=== PATIENT | female | born 1980 | race Caucasian/White ===

== ENCOUNTER → 2020-10-07 | Day surgery (SDC) | payer BC ==
[~2020-10-07] MED LIST: FENTANYL CITR 100 MCG/2 ML ONE; HYDROCODONE/APAP 5/325 MG TAB ONE; KETOROLAC 30 MG/ML INJ ONE; LIDOCAINE 1% MPF 5 ML VIAL ONE; MIDAZOLAM HCL 2 MG/2 ML INJ ONE; NA CHLORIDE 0.9% 2,000 ML ONE; ONDANSETRON 4 MG/2 ML VIAL ONE; Ringers Lactate 1,000 ML IV ONE; dexAMETHasone 10 MG/ML VIAL ONE; propofoL 200 MG/20 ML VIAL IV ONE
[2020-10-07] MEDS: CEFAZOLIN/SWI 1gm 1 GM/10 ML SYR ONE ×4 (12:43→14:16)
[2020-10-07 16:32] VITALS: O2SAT 100
[2020-10-07 16:35] VITALS: BP 111/70
--- NOTE | 2020-10-07 19:34 | OP ---
Date of Procedure: 10/07/2020 Surgeon: Candy Jefferson MD Preoperative Diagnoses: Dysmenorrhea, heavy periods, iron deficiency anemia. Postoperative Diagnoses: Dysmenorrhea, heavy periods, iron deficiency anemia. Procedures Performed: Hysteroscopy, endometrial ablation with NovaSure. Anesthesia: General with LMA. Specimens: No specimens. Complications: No complications. Drains: No drains. Condition: Stable. Findings: Uterus anteflexed, 9.5 cm sounding length, 5.5 cm cavity length. Cervical length was rabia mated at 4 cm with a 4.7 cm, power 142 shi and time of ablation 1 minute 48 seconds. Two devices h ad to be used, the first device shut off at 25 seconds with vacuum seal leak detected. Then, after r eadjustment and repositioning, another 5 seconds shut off again. Then, this device was removed. The second device used and there was no problems using and completing the ablation. Indications: The patient is a 39-year-old female with heavy bleeding, dysmenorrhea. Previously had seen Dr. Dang and had IUDs placed. Her bleeding has gotten progressively worse and iron deficiency a nemia at this time. She was using NSAIDs for her dysmenorrhea, IUD decline. Endometrial sampling pe rformed and no EIN or EAC (atypia or malignancy). She had history of Essure in the past. Hemoglobin currently 13 g. Discussed about all the different options and she wanted to proceed with an ablatio n, so she was consented and brought to the OR for this. She had history of COVID in the past and her COVID test came back positive, which was not surprising; however, the patient is completely asymptom atic for more than 2 weeks. Procedure In Detail: She was brought to the OR. After re-consented, taken back to the OR, placed in supine fashion on the operating table. 2 g of Ancef were given. Toradol was given 30 mg. SCDs wer e placed. Time-out was done. The patient was placed in dorsal lithotomy position. Vulva, vagina, a nd perineum were prepped and draped in a sterile fashion. Speculum placed to expose the cervix. Ant erior lip grasped with single Allis clamp on the anterior lip. Then, diagnostic SlimLine hysteroscop e, 30 degree lens, normal saline used for direct cavity evaluation. The sounding length was 9.5 cm, cervical length 4 cm. Calculated cavity length of 4.5 cm was estimated and then entered in the mach ine. Then, the NovaSure device was opened up and deployed without any problems. The cervix was dila hemant to 16-Nauruan. Then, the device was deployed without any problems. Once it was inside and deploy ed, the width was 4.7 cm. I made sure that the cervical closure was placed appropriately and the cav ity assessment test was done. Once it passed, I started the ablation cycle enabling the machine. Th en at 25 seconds, there was shut off due to detected vacuum leak alert. The seal at the cervix was c hecked. There was no evidence of any leakage here, so I went on to reactivate the device and then 5 seconds, it had the same alarm. So, the device was deployed in the usual fashion. Then, diagnostic hysteroscopy was performed. There was no evidence of any perforation. Excellent visualization of al l uterine daniels, tubal ostia as well. So, the scope was removed. Then, a new device was opened up. The Allis clamp was switched to a single-tooth tenaculum. Then, the device was deployed without any problems after reassessing the length. The cavity width was again 4.7 cm. Then, the readings were entered into the generator and ablation cycle started. The occluder was placed at the cervix and an Allis clamp was used at the cervix for further tightening and prevention of any leak. The cycle was completed without any problems or shut off 142 shi for 1 minute 48 seconds. The device was un-depl oyed in the usual fashion. Then, hysteroscopy was performed. There was excellent ablation effect an d all was slight amount of endometrium at the fundus on the left side appeared to still be slightly l ess cauterized. More than 95% of the endometrial surface appeared to be well ablated. The cavity wa s rinsed out. The scope was removed. Instrument, needle, and sponge counts were done after everythi ng was removed and they were correct. EBL was minimal. The patient tolerated the procedure well. S he was given Toradol at the beginning of the case. She was taken to the PACU in stable condition. S he is a COVID positive patient, so she was kept in a negative pressure room, all precautions taken un iversally. Then, she was given Diflucan as she was complaining of vulvar irritation, likely prior hi story of vulvovaginal candidiasis, so Diflucan now in 72 hours if there is 1 available we will it now and then let her take her 2 tablets 3 days apart. She has a 4-week appointment follow up at the off ice. All instructions given. [place] given. Diflucan prescription given. She will be discharged sherice HAMILTON/JEFERSON Voice ID: [id number] Report ID: [id number]
== END ==
LOC: OR 11:27
PROVIDERS: ATTEND Obstetrics & Gynecology
PROC: 0U5B8ZZ Destruction of Endometrium, Via Natural or Artificial Opening Endoscopic (ICD-10-PCS; principal; 2020-10-07 12:30)
DX: N94.6 Dysmenorrhea, unspecified (principal); N92.1 Excessive and frequent menstruation with irregular cycle; D50.0 Iron deficiency anemia secondary to blood loss (chronic); D50.8 Other iron deficiency anemias; U07.1 COVID-19
CPT/HCPCS: 81025; 58563; U0003; J2704; J2250; J3010; J1100; J0690 ×2; J7120; J7030; J2405

== ENCOUNTER 2024-06-14 11:55 | Emergency (ER) | payer BC ==
--- OUTSIDE RECORDS SUMMARY | 2024-06-14 11:58 | XMS REPORT | Continuity of Care Document ---
Author Name Unknown Address [address] [place] [address] [facility] thconnect Address [address] [place] [address] Care Team Providers Care End Lathe Operator Name Role Phone Pcp, Patient Does Not Have A Primary Care Physic wayne [email or web address] Attending Clinician DARA Calloway Attending Clinician Unavailable Dara Moreno PA-C Attending Clinician [phone] Doctor Unassigned, [place] Attending Clinician U LAYA Leahy Attending Clinician Unavail able [email or web address]_S Admitting Clinician López hernandez Physician, No Primary or Family Admitting Clinic wayne Unavailable Payers Payer Name Policy Type Policy Number Effective Date Expirati on Date Source [facility] [id number] 2022 00:00:00 Problems Condition Name Condition Details Condition Category Status Onset Date Resolution Date Last Treatment Date Treating Clinician Comments Source No known active problems No known active problems Disease [facility] Allergies, Adverse Reactions, Alerts Allergy Name Allergy Type Status Severity Reaction(s) Onset Date Inactive Date Treating Clinician Comments Source NO KNOWN ALLERGIE S Drug Class Active [facility] Social History Social Habit Start Date Stop Date Quantity Comments Source History of tobacco use Passive smoker [facility] Exposure to SARS-CoV-2 (event) 2022-07-14 00:00:00 2022-07-24 14:50:00 Not sure [facility] Tobacco use and exposure 2022-07-24 00:00:00 2022-07-24 00:00:00 Smokeless tobacco non-user [facility] Alcohol intake 2022-07-24 00:00:00 2022-07-24 00:00:00 Current drinker of alcohol (finding) [facility] Sex Assigned At 1980 00:00:00 1980 00:00:00 [facility] Smoking Status Start Date Stop Date Source Tobacco smoking consumption unknown [facility] Never smoked tobacco [facility] Medications Ordered Medication Name Filled Medication Name Start Date Stop Date Current Medication? Ordering Clinician Indication Dosage Frequency Signature (SIG) Comments Components Source No known medications 07-26 14:06: 13 No No known medication s [facility] ARMOUR THYROID 60 mg tablet 07-21 00:00: 00 Yes [facility] SYNTHROID 25 mcg tablet 07-20 00:00: 00 Yes [facility] dicyclomine 10 mg capsule 2021-07 00:00: 00 Yes [facility] dextroamphe tamine-amph etamine 20 mg tablet 2021-07- 00:00: 00 Yes [facility] Vital Signs Vital Name Observation Time Observation Value Comments S mynor Systolic blood pressure 2022-07-24 21:19:00 124 mm[Hg] [facility] Diastolic blood pressure 2022-07-24 21:19:00 84 mm[Hg] [facility] Heart rate 2022-07-24 21:19:00 77 /min [facility] Body temperature 2022-07-24 21:19:00 36.78 [place] [facility] Respiratory rate 2022-07-24 21:19:00 17 /min [facility] Body height 2022-07-24 21:19:00 167.6 cm [facility] Body weight 2022-07-24 21:19:00 60.601 kg [facility] BMI 2022-07-24 21:19:00 21.56 kg/m2 [facility] Procedures Procedure Date / Time Performed Performing Clinicia n Source ASSIGNMENT OF BENEFITS 2022-07-24 20:50:20 Docto r Unassigned, [place] [facility] Encounters Start Date/Time End Date/Time Encounter Type Admission Type Attending Clinicians Care Facility Care Department Encounter ID Source 2023-05-13 00:00:00 2023-05-13 00:00:00 Outpatient [email or web address] [email or web address] PRIV PRIV [id number] [facility] 2022-07-25 15:45:00 2022-07-25 15:45:00 Outpatient DARA FRAGA [facility] [id number] [facility] 2022-07-24 16:30:00 2022-07-24 16:49:23 Outpatient R DARA MORENO [facility] [id number] [facility] 2022-07-24 16:30:00 2022-07-24 16:49:23 Office Visit Dara Moreno [facility] ..[id number] [facility] 2022-07-24 00:00:00 2022-07-24 00:00:00 Orders Only Doctor Unassigned, [place] [facility] .[id number] [facility] 2022-07-20 00:00:00 2022-07-20 00:00:00 Telephone Dara Moreno [facility] ..[id number] [facility] 2019-07-17 12:00:2019-07-17 12:00:00 Outpatient [facility] [id number] [facility]
--- NOTE | 2024-06-14 13:46 | RAD REPORT ---
EXAM: Chest Single View HISTORY: SWELLING COMPARISON: None. FINDINGS: LUNGS/PLEURA: The lungs are clear. No pleural effusions or pneumothorax. No pulmonary edema. MEDIASTINUM: The mediastinal silhouette is within normal limits. CARDIAC: The cardiac silhouette is within normal limits. UPPER ABDOMEN: No significant abnormality. BONES: No acute fracture. LINES/TUBES/OTHER: N/A IMPRESSION: No evidence of acute cardiopulmonary disease.
[2024-06-14 13:58] LABS: Absolute Basophils 0.1 K/uL (0-0.5); Absolute Eosinophils 0.3 K/uL (0-0.5); Absolute Lymphocytes (CBC) 0.7 K/uL (0.7-4.9); Absolute Monocytes 0.3 K/uL (0.1-1.3); Absolute Neutrophil 4.1 K/uL (1.8-8.0); Eosinophils % 5.3 % (0-4.4); Hematocrit 40.8 % (36.0-45.0); Hemoglobin 13.7 g/dL (12.0-15.0); Lymphocytes % 12.8 % (15.3-44.8); MCH 31.5 pg (27.0-35.0); MCHC 33.7 g/dL (32.0-36.0); MCV 93.5 fL (80-100); MPV 9.8 fL (7.6-11.3); Monocytes % 4.8 % (3.3-12.3); Neutrophils % 76.1 % (41.7-73.7); Platelets 226 thou/uL (152-406); RBC Red Blood Cell Count 4.37 M/uL (3.86-4.86); Red Cell Distribution Width 12.5 % (12.1-15.2)
[2024-06-14 14:23] LABS: ALT/SGPT 21 U/L (13-56); AST/SGOT 22 U/L (15-37); Albumin 3.4 g/dL (3.4-5.0); Alkaline Phosphatase 83 U/L (45-117); Anion Gap 7.3 mEq/L (5.0-15.0); BUN Blood Urea Nitrogen 8 mg/dL (7-18); Bicarbonate 28 mEq/L (21-32); Bilirubin Direct < 0.2 mg/dL (0-0.2); Bilirubin Indirect, Calculated 0.1 mg/dL (0.2-0.8); Bilirubin Total 0.3 mg/dL (0.2-1.0); Globulin 3.4 g/dL (2.3-3.5); Glomerular Filtration Rate 96 ml/min (=/>90); Glucose Level 71 mg/dL (74-106); Magnesium 1.7 mg/dL (1.6-2.4); NT PRO-BNP 165 pg/mL (<125); Potassium 3.3 mEq/L (3.5-5.1); Protein, Total 6.8 g/dL (6.4-8.2); Sodium Level 142 mEq/L (136-145)
[2024-06-14] MEDS ORDERED: FUROSEMIDE 20 MG/ 2ML VIAL ONE (15:41)
[2024-06-14] MEDS ORDERED: POTASSIUM CL SA 10 MEQ TAB PO ONE (15:42)
[2024-06-14 16:09] LABS: Specific Gravity 1.025 (1.005-1.030)
[2024-06-14 16:12] LABS: Calcium Oxalate Crystals- Ur Moderate /HPF (None Seen); Specific Gravity 1.025 (1.005-1.030); Sqamous Epithelial <5 /HPF (None Seen); Urine Bacteria <20 /HPF (<20); Urine Bilirubin NEGATIVE (Negative); Urine Blood Negative (Negative); Urine Clarity Extremely Turbid (Clear); Urine Color Yellow (Yellow); Urine Culture Reflex Order REFLEXED; Urine Glucose NEGATIVE (Negative); Urine Ketones TRACE (Negative); Urine Microscopic Reflex YN ORDER UMIC; Urine Mucus 4+ /HPF (None Seen); Urine Nitrite NEGATIVE (Negative); Urine Protein 1+ (Negative); Urine RBC None Seen /HPF (None Seen); Urine Urobilinogen Normal (Normal); Urine pH 5.5 (5.0-7.0)
--- NOTE | 2024-06-14 16:16 | ER ---
Nurse's Notes [facility] Name: Clair Metz Age: 43 yrs Sex: Female : 1980 Arrival Date: 06/14/2024 Time: 11:55 Bed 15 Private MD: Diagnosis: Edema, unspecified Presentation: 06/14 12:21 Chief complaint: Patient states: bilateral hand, feet pain and swelling that began ss . Coronavirus screen: Client denies travel out of the [place] in the last 14 days. Ebola Screen: Patient denies exposure to infectious person. Patient denies travel to an Ebola-affected area in the 21 days before illness onset. Initial Sepsis Screen: Does the patient meet any 2 criteria? No. Patient's initial sepsis screen is negative. Does the patient have a suspected source of infection? No. Patient's initial sepsis screen is negative. Risk Assessment: Do you want to hurt yourself or someone else? Patient reports no desire to harm self or others. Onset of symptoms was June 12, 2024. 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 - Infectious Disease History:: Denies. - Social history:: Smoking status: Patient reports the use of cigarette tobacco products, denies chronic smoking, but will smoke occasionally. Screenin:28 [facility] ED Fall Risk Assessment (Adult) History of falling in the last 3 months, tm6 including since admission No falls in past 3 months (0 pts) Confusion or Disorientation No (0 pts) Intoxicated or Sedated No (0 pts) Impaired Gait No (0 pts) Mobility Assist Device Used No (0 pt) Altered Elimination No (0 pt) Score/Fall Risk Level 0 - 2 = Low Risk Oriented to surroundings, Maintained a safe environment, Educated pt \T\ family on fall prevention, incl call for assistance when getting out of bed. Abuse screen: Denies threats or abuse. Denies injuries from another. Nutritional screening: No deficits noted. Tuberculosis screening: No symptoms or risk factors identified. Assessment: 14:28 General: Appears in no apparent distress. Behavior is calm, cooperative. Pain: tm6 Complains of pain in right hand, left hand, right foot and left foot Pain currently is 1 out of 10 on a pain scale. Quality of pain is described as aching, numb, Pain began 1 day ago. Neuro: Level of Consciousness is awake, alert, obeys commands, Oriented to person, place, time, situation. Cardiovascular: Patient's skin is warm and dry. Respiratory: Airway is patent Respiratory effort is even, unlabored, Respiratory pattern is regular, symmetrical. GI: No signs and/or symptoms were reported involving the gastrointestinal system. Abdomen is flat, non-distended. : No signs and/or symptoms were reported regarding the genitourinary system. EENT: No signs and/or symptoms were reported regarding the EENT system. Derm: No signs and/or symptoms reported regarding the dermatologic system. Musculoskeletal: Swelling present in right hand, left hand, right foot and left foot Reports pain in right hand, left hand, right foot and left foot since yesterday. Pain is 1 out of 10 on a pain scale. 16:32 Reassessment: Patient and/or family updated on plan of care and expected duration. Pain tm6 level reassessed. Patient is alert, oriented x 3, equal unlabored respirations, skin warm/dry/pink. Vital Signs: 12:18 Temp 98.2(O); Pulse Ox 100% on R/A; tm6 12:20 BP 123 / 65; Pulse 76; Pulse Ox 100% on R/A; Weight 61.23 kg; Height 5 ft. 6 in. ; Pain ss 0/10; 14:30 BP 118 / 63; Pulse 71; Pulse Ox 99% on R/A; MAP 81 mmHg; Pain 1/10; tm6 16:32 BP 119 / 58; Pulse 80; Resp 17; Temp 98.2; Pulse Ox 100% ; MAP 76 mmHg; Pain 0/10; tm6 12:20 Body Mass Index 21.79 (61.23 kg, 167.64 cm) ss 12:20 Pain Scale: Adult ss 14:30 Pain Scale: Adult tm6 16:32 Pain Scale: Adult tm6 ED Course: 11:57 Patient arrived in ED. mr 11:58 Denisa Mckeon FNP-C is [facility]. kb 11:58 Santy Lopez MD is Attending Physician. kb 12:24 Triage completed. ss 12:24 Arm band placed on left wrist. ss 13:44 XRAY Chest (1 view) In Process Unspecified. EDMS 13:46 Basic Metabolic Panel Sent. nh2 13:46 CBC with Diff Sent. nh2 13:46 LFT's Sent. nh2 13:46 Magnesium Sent. nh2 13:46 NT PRO-BNP Sent. nh2 13:46 Troponin HS Sent. nh2 13:46 Inserted saline lock: 20 gauge in right antecubital area, using aseptic technique. nh2 Blood collected. Flushed with 10 mL NS. 14:18 Marlee Pope, NATALI is Primary Nurse. tm6 14:28 Patient has correct armband on for positive identification. Bed in low position. Call tm6 light in reach. Side rails up X 1. Provided Education on: use of call catherine. Client placed on continuous cardiac and pulse oximetry monitoring. NIBP monitoring applied. quality assurance monitor chassis on. Pulse ox on. NIBP on. Door closed. Noise minimized. Warm blanket given. Pillow given. 16:10 Urinalysis w/ reflexes Sent. tm6 16:33 No provider procedures requiring assistance completed. IV discontinued, intact, tm6 bleeding controlled, No redness/swelling at site. Pressure dressing applied. Administered Medications: 16:10 Drug: Furosemide IVP 20 mg IVP once; give over 2 minutes Route: IVP; Site: right tm6 antecubital; 16:33 Follow up: Response: No adverse reaction tm6 16:10 Drug: Potassium Chloride PO 20 mEq PO once Route: PO; tm6 16:33 Follow up: Response: No adverse reaction tm6 Medication: 14:28 VIS not applicable for this client. tm6 Outcome: 16:16 Discharge ordered by . kb 16:33 Discharged to home ambulatory, with family, tm6 16:33 Condition: stable 16:33 Discharge instructions given to patient, family, Instructed on discharge instructions, follow up and referral plans. medication usage, Demonstrated understanding of instructions, follow-up care, medications, Prescriptions given X 1, 16:33 Patient left the ED. tm6 Signatures: Dispatcher [employer] EDMS Denisa Mckeon FNP-C SCREW MACHINE HAND-Deanna Rushing, Reg Reg Shonda Mehta, RN RN ss Marlee Pope RN RN tm [place] , [place] [id number] Corrections: (The following items were deleted from the chart) 12:24 Home Meds: None; ss 12: 12:24 PMHx: None; ss
--- NOTE | 2024-06-14 16:16 | EDPHYS ---
Physician Documentation [facility] Name: Clair Metz Age: 43 yrs Sex: Female : 1980 Arrival Date: 06/14/2024 Time: 11:55 Bed 15 Private MD: ED Physician Santy Lopez HPI: 06/14 16:19 This 43 yrs old Female presents to ER via Ambulatory with complaints of Hand Swelling, kb Swelling of Lower Extremity. 16:19 Pt is a 43 year old female with no medical history who presents for swelling to all kb extremities that started 3 days ago. States this has never happened before. Denies shortness of breath. States her shoes and rings started feeling tighter and tighter. . 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 - Infectious Disease History:: Denies. - Social history:: Smoking status: Patient reports the use of cigarette tobacco products, denies chronic smoking, but will smoke occasionally. ROS: 14:48 Constitutional: As per HPI kb Exam: 14:47 Constitutional: This is a well developed, well nourished patient who is awake, alert, kb and in no acute distress. Head/Face: Normocephalic, atraumatic. ENT: Moist Mucous membranes Cardiovascular: Regular rate Respiratory: Respirations even and unlabored. No increased work of breathing. Talking in full sentences Abdomen/GI: Soft, non-tender. No distention Skin: Warm, dry with normal turgor. Normal color. MS/ Extremity: Pulses equal, no cyanosis. Neurovascular intact. Full, normal range of motion. Neuro: Awake and alert, GCS 15, oriented to person, place, time, and situation. 14:47 ECG was reviewed by the Attending Physician. Vital Signs: 12:18 Temp 98.2(O); Pulse Ox 100% on R/A; tm6 12:20 BP 123 / 65; Pulse 76; Pulse Ox 100% on R/A; Weight 61.23 kg; Height 5 ft. 6 in. ; Pain ss 0/10; 14:30 BP 118 / 63; Pulse 71; Pulse Ox 99% on R/A; MAP 81 mmHg; Pain 1/10; tm6 16:32 BP 119 / 58; Pulse 80; Resp 17; Temp 98.2; Pulse Ox 100% ; MAP 76 mmHg; Pain 0/10; tm6 12:20 Body Mass Index 21.79 (61.23 kg, 167.64 cm) ss 12:20 Pain Scale: Adult ss 14:30 Pain Scale: Adult tm6 16:32 Pain Scale: Adult tm6 MDM: 11:58 Medical Screening Exam initiated kb 14:48 Differential diagnosis: edema, acute renal failure, CHF. Data reviewed: vital signs, kb nurses notes. Historians other than the Patient: Spouse/Significant Other: spouse. 15:39 Counseling: I had a detailed discussion with the patient and/or guardian regarding the kb historical points, exam findings, and any diagnostic results supporting the discharge/admit diagnosis, lab results, radiology results, the need for outpatient follow up, a family practitioner, to return to the emergency department if symptoms worsen or persist or if there are any questions or concerns that arise at home. 06/14 12:25 Order name: Basic Metabolic Panel; Complete Time: 14:24 kb 06/14 12:25 Order name: CBC with Diff; Complete Time: 14:21 kb 06/14 12:25 Order name: LFT's; Complete Time: 14:24 kb 06/14 12:25 Order name: Magnesium; Complete Time: 14:24 kb 06/14 12:25 Order name: NT PRO-BNP; Complete Time: 14:24 kb 06/14 12:25 Order name: Troponin HS; Complete Time: 14:24 kb 06/14 12:25 Order name: TSH; Complete Time: 14:24 kb 06/14 15:34 Order name: Test, Urine; Complete Time: 16:15 ss 06/14 15:34 Order name: Urinalysis w/ reflexes; Complete Time: 16:15 ss 06/14 16:15 Order name: Urine Culture EDMS 06/14 12:25 Order name: XRAY Chest (1 view); Complete Time: 13:52 kb 06/14 12:25 Order name: Cardiac monitoring; Complete Time: 14:52 kb 06/14 12:25 Order name: EKG - Nurse/Tech; Complete Time: 14:52 kb 06/14 12:25 Order name: IV Saline Lock; Complete Time: 13:46 kb 06/14 12:25 Order name: Labs collected and sent; Complete Time: 13:46 kb 06/14 12:25 Order name: O2 Per Protocol; Complete Time: 14:23 kb 06/14 12:25 Order name: O2 Sat Monitoring; Complete Time: 14:23 kb EC:47 Rate is 74 beats/min. Rhythm is regular. QRS [place] is Normal. DE interval is normal at kb 128 msec. QRS interval is normal at 94 msec. QT interval is normal at 430 msec. Administered Medications: 16:10 Drug: Furosemide IVP 20 mg IVP once; give over 2 minutes Route: IVP; Site: right tm6 antecubital; 16:33 Follow up: Response: No adverse reaction tm6 16:10 Drug: Potassium Chloride PO 20 mEq PO once Route: PO; tm6 16:33 Follow up: Response: No adverse reaction tm6 Disposition Summary: 06/14/24 16:16 Discharge Ordered Notes: Location: Home kb Condition: Stable kb Diagnosis - Edema, unspecified kb Followup: kb - With: Emergency Department - When: As needed - Reason: Worsening of condition Followup: kb - With: Private Physician - When: 2 - 3 days - Reason: Recheck today's complaints, Continuance of care, Re-evaluation by your physician Discharge Instructions: - Discharge Summary Sheet kb - Nephrotic Syndrome kb - Peripheral Edema kb Forms: - Medication Reconciliation Form kb - Antibiotic Education kb - Prescription Opioid Use kb - Patient Portal Instructions kb - Leadership Thank You Letter kb Prescriptions: - Hydrochlorothiazide 12.5 mg Oral Tablet - take 1 tablet ORAL route once daily; 30 tablet; Refills: 0, Product Selection kb Permitted Signatures: Dispatcher [employer] EDMS Denisa Mckeon FNP-C CLEO-Shonda Temple, RN RN Marlee Modi RN RN tm6 Corrections: (The following items were deleted from the chart) 12:24 12:24 Home Meds: None; ss ss 12:24 12:24 PMHx: None; ss ss 12:26 12:26 BASIC METABOLIC PANEL+C.LAB.BRZ ordered. EDMS EDMS 12: 12:26 CBC+H.LAB.BRZ ordered. EDMS EDMS 12: 12:26 HEPATIC FUNCTION+C.LAB.BRZ ordered. EDMS EDMS 12: 12:26 MAGNESIUM+C.LAB.BRZ ordered. EDMS EDMS : 12:26 PROBNP+C.LAB.BRZ ordered. EDMS EDMS : 12:26 Troponin High Sensitivity+C.LAB.BRZ ordered. EDMS EDMS : 12:26 THYROID STIMULAT HORMONE+C.LAB.BRZ ordered. EDMS EDMS : 12:26 Chest Single View+RAD.RAD.BRZ ordered. EDMS EDMS 15:35 15:35 Test, Urine+UC.LAB.BRZ ordered. EDMS EDMS 15:35 15:35 Urinalysis+U.LAB.BRZ ordered. EDMS EDMS
[2024-06-14 17:07] VITALS: TEMP 98.2
[2024-06-14 17:15] VITALS: BP 119/58; O2SAT 100
--- NOTE | 2024-06-15 14:12 | EKG ---
Test Date: 2024-06-14 Test Time: 14:32:03 [employer] Sales Agent: AM MEASUREMENT RESULTS: Intervals: Rate: 74 MS: 128 QRSD: 94 QT: 388 QTc: 430 Foster: P: 65 MS: 128 QRS: -10 T: 53 INTERPRETIVE STATEMENTS: Normal sinus rhythm Nonspecific T wave abnormality Abnormal ECG No previous ECG available for comparison Electronically Signed On 06-15-24 14:11:11 DUCT MAKER by Dominik Reilly
== END 2024-06-14 16:33 | disposition home or self-care (01) ==
LOC: ER 11:55
DX: R60.9 Edema, unspecified (principal); F17.210 Nicotine dependence, cigarettes, uncomplicated
CPT/HCPCS: 93005; 85025; 81001; 87086; 80048; 36415; 83735; 81025; 80076; 84443; 84484; 83880; 71045; 96374; 99285; J1940; 87088